=== PATIENT | female | born 1990 | race African-American/Black ===

== ENCOUNTER 2018-09-10 19:23 | Emergency (ER) | payer MEDICAID ==
[~2018-09-10] VITALS: Ht 172.7 cm; Wt 56.0 kg
[~2018-09-10 19:23] MED LIST: ARIP20TA4 PO; ESCI20TA29 PO; HYDR-3686 PO; QUET-1 PO
[2018-09-10 22:16] LABS: BASOPHILS % (AUTO) 0.4 % (0-1); EOSINOPHILS % (AUTO) 0.5 % (0-6); HEMATOCRIT 43.9 % (35.0-45.0); HEMOGLOBIN 14.9 g/dl (12.0-16.0); LYMPHOCYTES # (AUTO) 2.6 X10'3 (1.1-4.8); MEAN CORPUSCULAR VOLUME 91.3 FL (78-98); MEAN PLATELET VOLUME 7.3 FL (7.4-10.4); MONOCYTES # (AUTO) 0.4 X10'3 (0-0.9); MONOCYTES % (AUTO) 5.9 % (2-12); NEUTROPHILS # (AUTO) 3.1 X10'3 (1.8-7.7); NEUTROPHILS % (AUTO) 50.2 % (42-75); PLATELET COUNT 336 X10'3 (140-440); RED BLOOD COUNT 4.81 X10'6 (4.20-5.60); RED CELL DISTRIBUTION WIDTH 13.8 % (11.5-14.5); WHITE BLOOD COUNT 6.1 X10'3 (4.5-11.0)
[2018-09-10 22:32] LABS: ALANINE AMINOTRANSFERASE 24 U/L (12-78); ALBUMIN 4.1 G/DL (3.4-5.0); ALKALINE PHOSPHATASE 54 IU/L (46-116); ANION GAP 10 (8-16); ASPARTATE AMINO TRANSFERASE 17 U/L (10-37); BILIRUBIN,TOTAL 0.4 MG/DL (0.1-1.0); BLOOD UREA NITROGEN 24 MG/DL (7-18); BUN/CREATININE RATIO 24.7 (6.6-38.0); CALCIUM 9.5 MG/DL (8.5-10.1); CHLORIDE 102 MMOL/L (99-107); CREATININE 0.97 MG/DL (0.40-0.90); GLUCOSE 81 MG/DL (70-104); POTASSIUM 3.9 MMOL/L (3.5-5.1); SODIUM 138 MMOL/L (135-145); TOTAL CARBON DIOXIDE 26.4 MMOL/L (24-32); TOTAL PROTEIN 8.3 G/DL (6.4-8.2); eGFR 83 ML/MIN
[2018-09-10 22:33] LABS: ETHANOL < 0.010 GM/DL (0.0-0.010)
[2018-09-10] MEDS ORDERED: OLANZapine **IM** 10 mg inj. IM ONE (23:00)
[2018-09-10] MEDS ORDERED: haloperidol lactate 5mg/ml inj IM ONE (23:05)
[2018-09-10] MEDS ORDERED: LORazepam 2 mg/ml vial IM ONE (23:05)
[2018-09-10] MEDS ORDERED: diphenhydrAMINE 50 mg/ml inj IM ONE (23:05)
--- NOTE | 2018-09-11 00:28 | NUR ---
pt was being vocal and refusing care upon entry into room, when asked if this nurse could give her an injection patient agreed and calmly allowed medication to be given, pt sleeping quietly at this time
--- NOTE | 2018-09-11 02:37 | NUR ---
pt sleeping, no new c/o
--- NOTE | 2018-09-11 04:14 | NUR ---
pt sleeping, no c/o
--- NOTE | 2018-09-11 05:14 | NUR ---
pt still sleeping soundly, changed position in bed, no c/o
--- NOTE | 2018-09-11 08:11 | NUR ---
BEDSIDE REPORT RECEIVED FROM KIRSTEN BARRERA AT THIS TIME. PATIENT ASLEEP, NO SIGNS OF DISTRESS NOTED, BREATHING EVEN AND UNLABORED. SLEEPING SUPINE POSITION, EASILY AROUSED VIA VERBAL STIMULI, TURNED TO LEFT SIDE AND CONTINUED TO SLEEP. ALL SAFETY MEASURES IN PLACE, PATIENT VISIBLE TO STAFF AT ALL TIMES.
--- NOTE | 2018-09-11 09:21 | NUR ---
FIRST ATTEMPT TO OBTAIN URINE SAMPLE, PATIENT "MISSED" SPECIMEN MD DENNIS MADE AWARE, OKAY TO GIVE FLUIDS AND IF NO UA OBTAINED AGAIN THEN STRAIGHT CATH.
[2018-09-11 12:01] LABS: URINE HCG NEGATIVE (NEG)
[2018-09-11] MEDS ORDERED: hydrOXYzine 25 MG tablet PO PRN (12:15)
--- NOTE | 2018-09-11 12:35 | NUR ---
[facility] DR PICKETT MADE AWARE OF PATIENT STATUS AT THIS TIME, MD TO ASSESS PATIENT.
[2018-09-11 12:41] LABS: URINE AMPHETAMINE SCREEN POSITIVE (Neg); URINE BARBITUATE SCREEN NEGATIVE (Neg); URINE BENZODIAZEPINES SCREEN NEGATIVE (Neg); URINE CANNABINOID SCREEN POSITIVE (Neg); URINE COCAINE SCREEN NEGATIVE (Neg); URINE METHADONE SCREEN NEGATIVE (Neg); URINE OPIATE SCREEN NEGATIVE (Neg); URINE PHENCYCLIDINE SCREEN NEGATIVE (Neg)
[2018-09-11] MEDS ORDERED: quetiapine 100mg tablet PO SCH (13:00)
[2018-09-11 15:26] VITALS: BP 96/58
--- NOTE | 2018-09-11 18:37 | NUR ---
ASSUMED PT CARE FROM [facility]; LABS, VITALS, MEDICATIONS AND PT OVERALL CONDITION REVIEWED. PT ASSESSED IS SLEEPING ON L SIDE, APPEARS IN NO ACUTE DISTRESS. RESPIRATION EVEN,UNLABORED. PT IS MEDICALLY CLEARED ON , PENDING [facility] ASSESSMENT.
--- NOTE | 2018-09-11 18:55 | NUR ---
[facility] IN TO EVALUATE PATIENT.
--- NOTE | 2018-09-11 19:34 | NUR ---
[facility] MENTAL HEALTH WORKER EVALUATED THE PATIENT WHO WAS FOLLOWED BY THEM UNTIL LAST YEAR, PT HAD VOLUNTARILY LEFT THE PROGRAM. PER THE [facility] WORKER SHE IS THINKING CLEARLY NOW AND WILL BE RELEASED IF SHE HAS A PLACE TO STAY OR PLACED ON A 5150 IF SHE DOESN'T. [facility] IS GOING TO TALK TO THE AUNT ABOUT TAKING HER BACK HOME.
[2018-09-11] MEDS ORDERED: LORazepam 1 MG tablet PO ONE (20:55)
[2018-09-11] MEDS ORDERED: ESCI20TA38 PO (20:55)
[2018-09-11] MEDS ORDERED: ARIP20TA10 PO (20:55)
[2018-09-11] MEDS ORDERED: QUET-1 PO (20:55)
--- NOTE | 2018-09-11 20:56 | NUR ---
[facility] PT DOES NOT MEET CRITERIA FOR CONTINUED 5150 HOLD. SHE TALKED TO RASHID YATES (AUNT) @ [phone], WHO AGREES TO PICK HER UP AND WATCH HER.
[2018-09-12] MEDS ORDERED: aripiprazole 5mg tablet PO SCH (08:00)
[2018-09-12] MEDS ORDERED: citalopram 20mg tablet PO SCH (08:00)
== END 2018-09-11 21:44 | disposition home or self-care (01) ==
LOC: ER 19:23
DX: F20.9 Schizophrenia, unspecified (principal); F79 Unspecified intellectual disabilities; F41.9 Anxiety disorder, unspecified; F31.9 Bipolar disorder, unspecified; F17.200 Nicotine dependence, unspecified, uncomplicated; F15.90 Other stimulant use, unspecified, uncomplicated; Z56.0 Unemployment, unspecified; Z79.899 Other long term (current) drug therapy
CPT/HCPCS: 36415; 80053; 80305; 80320; 81025; 84443; 85025; 96372; 99284; J1200; J1630; J2060

== ENCOUNTER 2021-03-16 15:16 | Emergency (ER) | payer MEDICAID ==
[~2021-03-16] VITALS: Ht 165.1 cm; Wt 59.0 kg
[~2021-03-16 15:16] MED LIST changes: +ARIP20TA21 PO; +ESCI20TA39 PO
--- NOTE | 2021-03-16 17:10 | NUR ---
Pt. ambulated over from main ER accompanied by security and [facility]. She presented as agitated, anxious, and was actively responding to internal preoccupations AEB yelling out names and carrying on a conversations with others who were not in the room. Security stood by while staff attempted to verbally redirect pt. however she became more agitated.
[2021-03-16] MEDS ORDERED: diphenhydrAMINE 50 mg/ml inj IM ONE (17:20)
[2021-03-16] MEDS ORDERED: LORazepam 2 mg/ml vial IM ONE (17:20)
[2021-03-16] MEDS ORDERED: haloperidol lactate 5mg/ml inj IM ONE (17:20)
--- NOTE | 2021-03-16 17:30 | NUR ---
Obtained order from for Ativan 2mg, Benadryl 50 mg, and Haldol 10mg due to pts agitation and unsafe behaviors. She was combative towards staff and attempting to enter the rooms of other pt's on the unit talking in a non-sensical manner. Injections were administered in pt's ventrolateral and thigh area by two staff members. Pt. required physical restraint by security while injections were administered r/t combativeness. This casualty underwriter sat with pt. afterwards and was able to provide redirection to her to keep her safe and in bed. Due to pt's psychosis and agitated behaviors, admission assessments were unable to be completed. As well as lab draw and urine sample, will endorse to Noc shift. V/S obtained and WNL.
--- NOTE | 2021-03-16 18:22 | NUR ---
Pt. is sleeping in bed at this time, rr even and unlabored.
--- NOTE | 2021-03-16 20:00 | NUR ---
pt is sleeping, no s/s of distress noted.
--- NOTE | 2021-03-16 22:57 | NUR ---
pt continues to sleep, rr unlabored.
--- NOTE | 2021-03-17 01:15 | NUR ---
pt continues to sleep, no s/s of distress noted.
--- NOTE | 2021-03-17 02:28 | NUR ---
pt continues to sleep, no s/s of distress noted.
--- NOTE | 2021-03-17 05:22 | NUR ---
pt is sleeping, rr unlabored.
--- NOTE | 2021-03-17 18:42 | NUR ---
patient denied labs, got agitated, fell back asleep, will attempt at another time hopefully once patient is more alert and coherent.
--- NOTE | 2021-03-18 01:28 | NUR ---
PATIENT AWAKE EATING. LAID BACK DOWN, I ASKED IF SHE NEEDED TO USE THE RESTROOM OR IF SHE NEEDS ANYTHING AND SHE JUST MUMBLED NO. WILL CONT TO MONITOR.
--- NOTE | 2021-03-18 05:57 | NUR ---
Patient was willing to let me draw her blood, covid test, and do vs. patient would not let me take her to the bathroom to do UA or change her linens, stated " I want to sleep now, do it later."
[2021-03-18 06:37] LABS: BASOPHILS % (AUTO) 0.8 % (0-1); EOSINOPHILS # (AUTO) 0.1 X10'3 (0-0.9); EOSINOPHILS % (AUTO) 2.5 % (0-6); HEMATOCRIT 39.7 % (35.0-45.0); HEMOGLOBIN 13.4 g/dl (12.0-16.0); LYMPHOCYTES # (AUTO) 1.6 X10'3 (1.1-4.8); LYMPHOCYTES % (AUTO) 43.6 % (21-51); MEAN CORPUSCULAR HEMOGLOBIN 30.8 PG (27.0-31.0); MEAN CORPUSCULAR HGB CONC 33.6 g/dL (33.0-36.5); MEAN CORPUSCULAR VOLUME 91.5 FL (78-98); MEAN PLATELET VOLUME 7.3 FL (7.4-10.4); MONOCYTES # (AUTO) 0.3 X10'3 (0-0.9); NEUTROPHILS # (AUTO) 1.6 X10'3 (1.8-7.7); NEUTROPHILS % (AUTO) 44.1 % (42-75); PLATELET COUNT 310 X10'3 (140-440); RED BLOOD COUNT 4.34 X10'6 (4.20-5.60); RED CELL DISTRIBUTION WIDTH 13.1 % (11.5-14.5); WHITE BLOOD COUNT 3.7 X10'3 (4.5-11.0)
[2021-03-18 06:51] LABS: ALANINE AMINOTRANSFERASE 16 U/L (12-78); ALBUMIN/GLOBULIN RATIO 0.8 (1.1-1.5); ALKALINE PHOSPHATASE 57 IU/L (46-116); ANION GAP 11 (8-16); ASPARTATE AMINO TRANSFERASE 22 U/L (10-37); BILIRUBIN,TOTAL 0.6 MG/DL (0.1-1.0); BLOOD UREA NITROGEN 16 MG/DL (7-18); CALCIUM 8.7 MG/DL (8.5-10.1); CHLORIDE 106 MMOL/L (99-107); CREATININE 1.07 MG/DL (0.40-0.90); ETHANOL < 0.010 GM/DL (0.0-0.010); GLUCOSE 68 MG/DL (70-104); POTASSIUM 3.3 MMOL/L (3.5-5.1); SODIUM 141 MMOL/L (135-145); TOTAL CARBON DIOXIDE 23.9 MMOL/L (24-32); TOTAL PROTEIN 6.6 G/DL (6.4-8.2); eGFR 72 ML/MIN
--- NOTE | 2021-03-18 07:03 | NUR ---
Pt resting comfortably in low fowlers position, blankets pulled up over head, visible even and unlabored respirations noted.
--- NOTE | 2021-03-18 09:16 | NUR ---
Pt is awake. Stated she "ate a little of her breakfast." Pt stated she wasn't able to leave a urine sample yet. Pt was calm.
--- NOTE | 2021-03-18 10:01 | NUR ---
Pt awake ate some more breakfast. Pt requires clean up as started her mentral cycle. Pt voided before typewriter tester could a urine sample. Pt continues to calm and cooperative. Pt presents as fatigued. Addendum: 03/18/21 at 1613 by SAROJ Pt denied all mental health symptoms. Pt knew she was in the hospital, but unable to give name. Pt unsure of how she got here.
--- NOTE | 2021-03-18 12:02 | NUR ---
Pt sleeping comfortably on right side, U/A is still pending. Pt states "I don't have to go now." Pt has been evaluated, medical clearance and U/A pending placement.
--- NOTE | 2021-03-18 15:14 | NUR ---
Pt continues to sleep comfortably, was awake and asked to call her mom, but she doesn't know the number. Pt still has not left urine sample, when asked states "I don't have to use the bathroom now." Pt is drinking fluids.
--- NOTE | 2021-03-18 16:12 | NUR ---
Pt up to the bathroom - obtained urine sample.
[2021-03-18 16:38] LABS: URINE HCG NEGATIVE (NEG)
[2021-03-18 16:51] LABS: URINE AMPHETAMINE SCREEN POSITIVE (Neg); URINE BARBITUATE SCREEN NEGATIVE (Neg); URINE BENZODIAZEPINES SCREEN NEGATIVE (Neg); URINE CANNABINOID SCREEN NEGATIVE (Neg); URINE COCAINE SCREEN NEGATIVE (Neg); URINE METHADONE SCREEN NEGATIVE (Neg); URINE OPIATE SCREEN NEGATIVE (Neg); URINE PHENCYCLIDINE SCREEN NEGATIVE (Neg)
[2021-03-18 17:11] LABS: CLARITY,URINE SLIGHTLY CLOUDY (Clear); COLOR,URINE YELLOW (Yellow); UA COLLECTION TYPE CLN CATCH MIDSTREAM
[2021-03-18 17:12] LABS: GLUCOSE, URINE NEGATIVE (Neg); KETONES,URINE 40 mg/dl (Neg); LEUKOCYTE ESTERASE ,URINE NEGATIVE (Neg); NITRITES, URINE NEGATIVE (Neg); OCCULT BLOOD,URINE MODERATE (Neg); PROTEIN,URINE NEGATIVE (Neg); UROBILINOGEN,URINE 0.2 E.U/dL (0.2-1.0)
[2021-03-18 17:31] LABS: BACTERIA,URINE 3+ /HPF (Neg); CAL OXALATE CRYSTALS 1+ /HPF (NEGATIVE); MUCUS STRANDS NONE SEEN /LPF (Neg); SQUAMOUS EPITHELIAL CELL,UR MANY /LPF (FEW); WBC,URINE 0-4 /HPF (0-4)
--- NOTE | 2021-03-18 17:51 | NUR ---
FAXED PACKET TO [facility]. PT HAS ALREADY BEEN EVALUATED. PACKET WAS PENDING U/A.
--- NOTE | 2021-03-18 18:56 | NUR ---
Assumed care of patient, pt sat up to eat dinner and went back to sleep. Pt is currently laying on her back rr even and unlabored.
--- NOTE | 2021-03-18 20:29 | NUR ---
Pt is laying in bed sleeping
--- NOTE | 2021-03-19 00:20 | NUR ---
Recieved call from Shey quezada [facility] for information.
--- NOTE | 2021-03-19 01:18 | NUR ---
pt is sitting up in bed eating a snack. pt states she has no needs at this time.
[2021-03-19 05:09] VITALS: BP 121/79
--- NOTE | 2021-03-19 05:14 | NUR ---
PC from Shey at [facility], pt has been accepted but they would like to take her after 1pm. Requested she contact [place] office to arrange transportation.
--- NOTE | 2021-03-19 06:30 | NUR ---
Patient sleepin on left side. No distress observed. Continue to monitor.
--- NOTE | 2021-03-19 08:10 | NUR ---
Patient eating breakfast. No distress observed. Continue to monitor.
--- NOTE | 2021-03-19 08:40 | NUR ---
Patient taken to the BR and voided. RN and Tech went in to BR to assist patient getting cleaned up. Patient does not appear to be on her menses. RN found a cable hooker and chapstick in her bra and removed them. Patient given clean clothes to wear from the closet (sweatpants, shorts and T-shirt). Patient advised she is going to [facility]. Patient asked which one. Patient states she lives with her mother and asked when is she going home to her mom. RN explained that that would be up to the doctor at [facility]. Patient to be picke up anytime now. Patient awair and sitting in bed. Continue to monitor.
== END 2021-03-19 08:56 ==
LOC: ER 15:17
DX: F79 Unspecified intellectual disabilities (principal); Z20.822 Contact with and (suspected) exposure to COVID-19; R45.1 Restlessness and agitation; F22 Delusional disorders; F41.9 Anxiety disorder, unspecified; F31.9 Bipolar disorder, unspecified; F20.9 Schizophrenia, unspecified; F17.210 Nicotine dependence, cigarettes, uncomplicated; F15.90 Other stimulant use, unspecified, uncomplicated; Z56.0 Unemployment, unspecified; Z98.890 Other specified postprocedural states
CPT/HCPCS: 36415; 80053; 80305; 80320; 81001; 81025; 84443; 85025; 87635; 96372; 99285; C9803; J1200; J1630; J2060

== ENCOUNTER 2021-04-16 17:01 | Emergency (ER) | payer MEDICAID ==
[~2021-04-16] VITALS: Ht 317.5 cm; Wt 62.7 kg
[2021-04-16 17:46] LABS: BASOPHILS % (AUTO) 0.4 % (0-1); EOSINOPHILS # (AUTO) 0.1 X10'3 (0-0.9); EOSINOPHILS % (AUTO) 0.9 % (0-6); HEMATOCRIT 36.4 % (35.0-45.0); HEMOGLOBIN 12.1 g/dl (12.0-16.0); LYMPHOCYTES # (AUTO) 1.7 X10'3 (1.1-4.8); LYMPHOCYTES % (AUTO) 28.2 % (21-51); MEAN CORPUSCULAR HEMOGLOBIN 30.8 PG (27.0-31.0); MEAN CORPUSCULAR HGB CONC 33.2 g/dL (33.0-36.5); MEAN CORPUSCULAR VOLUME 92.8 FL (78-98); MEAN PLATELET VOLUME 7.5 FL (7.4-10.4); MONOCYTES # (AUTO) 0.6 X10'3 (0-0.9); MONOCYTES % (AUTO) 10.5 % (2-12); NEUTROPHILS # (AUTO) 3.7 X10'3 (1.8-7.7); PLATELET COUNT 269 X10'3 (140-440); RED BLOOD COUNT 3.92 X10'6 (4.20-5.60); RED CELL DISTRIBUTION WIDTH 13.4 % (11.5-14.5); WHITE BLOOD COUNT 6.1 X10'3 (4.5-11.0)
[2021-04-16 18:02] LABS: ALANINE AMINOTRANSFERASE 22 U/L (12-78); ALBUMIN 3.1 G/DL (3.4-5.0); ALBUMIN/GLOBULIN RATIO 0.8 (1.1-1.5); ALKALINE PHOSPHATASE 54 IU/L (46-116); ANION GAP 10 (8-16); ASPARTATE AMINO TRANSFERASE 11 U/L (10-37); BILIRUBIN,TOTAL 0.1 MG/DL (0.1-1.0); BLOOD UREA NITROGEN 24 MG/DL (7-18); BUN/CREATININE RATIO 20.5 (6.6-38.0); CALCIUM 8.9 MG/DL (8.5-10.1); CHLORIDE 109 MMOL/L (99-107); CREATININE 1.17 MG/DL (0.40-0.90); ETHANOL < 0.010 GM/DL (0.0-0.010); GLUCOSE 116 MG/DL (70-104); POTASSIUM 4.4 MMOL/L (3.5-5.1); SODIUM 144 MMOL/L (135-145); TOTAL CARBON DIOXIDE 25.3 MMOL/L (24-32); TOTAL PROTEIN 7.1 G/DL (6.4-8.2); eGFR 65 ML/MIN
--- NOTE | 2021-04-16 20:01 | NUR ---
Pt sleeping at this time. Pt awake at start of shift. Pleasant and cooperative. Guarded answers no to almost all assessment questions. [facility] Pt says she is here because she could not find her mother and she can't take care of herself.
[2021-04-16] MEDS ORDERED: hydrOXYzine 25 MG tablet PO PRN (20:55)
--- NOTE | 2021-04-17 05:18 | NUR ---
PACKET SENT TO [facility]
[2021-04-17 06:16] LABS: URINE HCG NEGATIVE (NEG)
--- NOTE | 2021-04-17 06:25 | NUR ---
Patient reclining in bed asking when breakfast is served. RN advises patient that breakfast will be here around 0800. Patient verbalizes understanding.
[2021-04-17 06:30] LABS: URINE AMPHETAMINE SCREEN NEGATIVE (Neg); URINE BARBITUATE SCREEN NEGATIVE (Neg); URINE BENZODIAZEPINES SCREEN NEGATIVE (Neg); URINE CANNABINOID SCREEN NEGATIVE (Neg); URINE COCAINE SCREEN NEGATIVE (Neg); URINE METHADONE SCREEN NEGATIVE (Neg); URINE OPIATE SCREEN NEGATIVE (Neg); URINE PHENCYCLIDINE SCREEN NEGATIVE (Neg)
[2021-04-17] MEDS ORDERED: quetiapine 100mg tablet PO SCH (08:00)
[2021-04-17] MEDS ORDERED: ESCITALOPRAM OXALATE 20 MG PO SCH (08:00)
[2021-04-17] MEDS ORDERED: non-formulary drug (Aripiprazole (Abilify) 1 TAB) PO SCH (08:00)
--- NOTE | 2021-04-17 08:05 | NUR ---
Patient eating breakfast. No distress observed. Continue to monitor.
[2021-04-17 08:42] LABS: CLARITY,URINE SLIGHTLY CLOUDY (Clear); COLOR,URINE YELLOW (Yellow); GLUCOSE, URINE NEGATIVE (Neg); KETONES,URINE NEGATIVE (Neg); NITRITES, URINE NEGATIVE (Neg); OCCULT BLOOD,URINE NEGATIVE (Neg); PROTEIN,URINE NEGATIVE (Neg); UA COLLECTION TYPE CLN CATCH MIDSTREAM
[2021-04-17 08:43] LABS: LEUKOCYTE ESTERASE ,URINE NEGATIVE (Neg); UROBILINOGEN,URINE 0.2 E.U/dL (0.2-1.0)
[2021-04-17 08:47] LABS: BACTERIA,URINE FEW /HPF (Neg); SQUAMOUS EPITHELIAL CELL,UR MANY /LPF (FEW); WBC,URINE 0-4 /HPF (0-4)
[2021-04-17 08:48] LABS: MUCUS STRANDS FEW /LPF (Neg); RBC,URINE 0-2 /HPF (0-2); TRANSITIONAL EPI CELLS,URINE FEW /HPF
--- NOTE | 2021-04-17 09:45 | NUR ---
Patient eating a sandwich and asked for another. Only 1 given. No distress observed. Continue to monitor.
--- NOTE | 2021-04-17 11:23 | NUR ---
Patient is attempting to call her outreach and education social worker. No distress observed. Continue to monitor.
--- NOTE | 2021-04-17 13:05 | NUR ---
Patient eating lunch. No distress observed. Continue to monitor.
--- NOTE | 2021-04-17 14:40 | NUR ---
Patient given a snack. No distress observed. Continue to monitor.
--- NOTE | 2021-04-17 15:27 | NUR ---
Archie Rendon, Marketing Clerk, [phone].
[2021-04-17 17:40] VITALS: BP 119/80
== END 2021-04-17 18:53 ==
LOC: ER 17:01
DX: F79 Unspecified intellectual disabilities (principal); Z20.822 Contact with and (suspected) exposure to COVID-19; F41.9 Anxiety disorder, unspecified; F31.9 Bipolar disorder, unspecified; F20.9 Schizophrenia, unspecified; F15.90 Other stimulant use, unspecified, uncomplicated; Z56.0 Unemployment, unspecified; Z79.899 Other long term (current) drug therapy
CPT/HCPCS: 36415; 80053; 80305; 80320; 81001; 81025; 85025; 87635; 99285; C9803